=== PATIENT | male | born 1955 | race Caucasian/White ===

== ENCOUNTER 2017-06-19 13:22 | Emergency (ER) | payer BC, OTHER ==
[~2017-06-19] VITALS: Ht 157.5 cm; Wt 61.7 kg
[2017-06-19 13:25] VITALS: BP 137/90
--- NOTE | 2017-06-19 13:30 | NUR ---
BIBRA FROM HOME DT CHEST PAIN, PRESSURE, NON RADIATING SINCE THIS AM, ASA 162MG GIVEN IN THE FIELD, NAD NOTED, VSS, RESP EVEN AND UNLABORED. PUT ON HOSPITAL GOWN AND MONITOR. WAITING FOR MD ARREDONDO.
--- NOTE | 2017-06-19 14:00 | NUR ---
PT REFUSED IV INSERT, OFFERED LIDOCAINE TOPICAL IN THE SITE FOR COMFORT, PT STILL REFUSED. EXPLAINED THE NECESSITY OF THE IV INSERT. PT'S SON AT WILL TRY TO CONVINCE THE PT.
--- NOTE | 2017-06-19 14:05 | NUR ---
PT LEFT THE ER, PT IS STABLE.
== END 2017-06-19 14:55 | disposition left against medical advice (07) ==
LOC: ER 13:25
DX: R07.89 Other chest pain (principal); R55 Syncope and collapse; Z91.14 Patient's other noncompliance with medication regimen; I10 Essential (primary) hypertension; I25.10 Atherosclerotic heart disease of native coronary artery without angina pectoris; I25.2 Old myocardial infarction
CPT/HCPCS: 71010; 93005 ×2; 99284; A4606; Z7610